=== PATIENT | female | born 1980 | race Caucasian/White ===

== ENCOUNTER 2016-05-03 23:30 | Inpatient (IN) | payer SELFPAY ==
[2016-05-04] MEDS ORDERED: Sodium Chloride 0.9% 1,000 ML IV SCH ×2 (00:45→09:00)
[2016-05-04] MEDS ORDERED: diphenhydrAMINE 50 MG/ML SDV IVPUSH ONE (00:52)
[2016-05-04] MEDS ORDERED: Sodium Chloride 0.9% 10 ML Syringe FLUSH ONE (01:56)
[2016-05-04] MEDS ORDERED: Sodium Chloride 0.9% 71 ML IV SCH (02:00)
[2016-05-04] MEDS ORDERED: Iopamidol 612 MG/ML 100 ML Bottle IV SCH (02:00)
[2016-05-04] MEDS ORDERED: LORazepam 2 MG/ML MDV IVPUSH ONE (02:59)
--- NOTE | 2016-05-04 06:39 | EDM.PDOC ---
ED HPI GI/ABDOMINAL - General Chief Complaint: Abdominal Pain Stated Complaint: [facility] Time Seen by Provider: 05/04/16 00:28 Source: Reports: Patient History Limitations: Reports: No limitations - History of Present Illness INITIAL COMMENTS - FREE TEXT/NARRATIVE: History of present illness: [35-year-old free male is brought to us from [place] where she has been since April 25. She is complaining of right flank pain. She states she has only history of liver cancer and cirrhosis in [place] we were able to confirm that she does have history of cirrhosis and hepatitis C and schizophrenia but no history of liver cancer that we're aware of. She presents rather dramatically complaining of right flank pain sharp 10 out of 10 in intensity without nausea vomiting constipation diarrhea or dysuria. She's had no fevers or chills.] Review of systems: As per history of present illness and below otherwise all systems reviewed and negative. Past medical history: As per history of present illness and as reviewed below otherwise noncontributory. Surgical history: As per history of present illness and as reviewed below otherwise noncontributory. Social history: She is coming from [place] and I [facility] Family history: As per history of present illness and as reviewed below otherwise noncontributory. Physical exam: HEENT: Atraumatic, normocephalic, pupils reactive, negative for conjunctival pallor or scleral icterus, mucous membranes moist, throat clear, neck supple, nontender, trachea midline. Lungs: Clear to auscultation, breath sounds equal bilaterally, chest nontender. Heart: S1S2, regular, negative for clicks, rubs, or JVD. Abdomen: She is difficult to examine given her dramatic presentation but it seems she has pain that is localized to the right flank and not the right upper quadrant. Pelvis: Stable nontender. Genitourinary: Deferred. Rectal: Deferred. Extremities: Atraumatic, negative for cords or calf pain. Neurovascular unremarkable. Neuro: Awake, alert, oriented. Cranial nerves II through XII unremarkable. Cerebellum unremarkable. Motor and sensory unremarkable throughout. Exam nonfocal. Diagnostics: [CT showing nonspecific splenomegaly and cholelithiasis but no cholecystitis. Her white count is normal her complete metabolic panel does show some elevation of her alkaline phosphatase and liver enzymes as she does have elevation of her lipase although this would of course be consistent with cirrhosis. Lactic acid level was normal] Therapeutics: [She received IV fluids and IV Benadryl to try to help her sleep and then we did subsequently use Ativan 0.5 mg IV and she has slept several hours and appears comfortable and so this is diagnostically useful in that we've not given her any pain medication and yet she is sleeping and appears comfortable] Impression: [Cholelithiasis Nonspecific splenomegaly] Plan: [I see no reason to admit her to the hospital. We're going to try to make arrangements for her to return to [place]. It may be reasonable for her to undergo a gallbladder ultrasound. This will be relayed to the [place] staff and perhaps Dr. Rivas can arrange that.] Definitive disposition and diagnosis as appropriate pending reevaluation and review of above. - Related Data Allergies/ADRs: Allergies Allergy/AdvReac Type Severity Reaction Status Date / Time Digitalis Glycosides Allergy Cannot Verified 05/04/16 00:26 Remember Home Meds: Home Meds Gabapentin [Neurontin] 600 mg PO DAILY 05/04/16 [History] Pregabalin [Lyrica] 300 mg PO DAILY 05/04/16 [History] Past Medical History Cardiovascular History: Reports: Heart murmur Gastrointestinal History: Reports: Cirrhosis Musculoskeletal History: Reports: Fracture Psychiatric History: Reports: Depression, Schizophrenia Hematologic History: Reports: Blood transfusion(s) Immunologic History: Reports: SLE - Infectious Disease History Infectious Disease History: Reports: Hepatitis C - Past Surgical History Cardiovascular Surgical History: Reports: Other (see below) Other Cardiovascular Surgeries/Procedures: open heart when a child Musculoskeletal Surgical History: Reports: ORIF Social & Family History - Family History Family Medical History: Noncontributory - Tobacco Use Smoking Status *Q: Current Every Day Smoker Years of Tobacco use: 18 Packs/Tins Daily: 1 - Caffeine Use Caffeine Use: Reports: Coffee - Recreational Drug Use Recreational Drug Use: No ED ROS GENERAL - Review of Systems Review Of Systems: ROS reveals no pertinent complaints other than HPI. ED EXAM, GI/ABD - Physical Exam Exam: See Below Course - Vital Signs Last Recorded V/S: Last Vital Signs Temp 37 C 05/04/16 02:43 Pulse 105 H 05/04/16 03:14 Resp 14 05/04/16 03:14 BP 124/65 05/04/16 03:14 Pulse Ox 94 L 05/04/16 03:14 - Orders/Labs/Meds Orders: Active Orders 24 hr Category Date Time Status EKG Documentation Completion [RC] ASDIRECTED Care 05/04/16 00:34 Active Abdomen Pelvis w Cont [CT] Stat Exams 05/04/16 01:51 Taken Iopamidol [Isovue-300 (61%)] Med 05/04/16 02:00 Active 100 ml IV . DIRECTED Sodium Chloride 0.9% [Normal Saline] 1,000 ml Med 05/04/16 00:45 Active IV ASDIRECTED Sodium Chloride 0.9% [Normal Saline] 71 ml Med 05/04/16 02:00 Active IV ASDIRECTED EKG 12 Lead [EK] Stat Ther 05/04/16 00:33 Ordered Medication Orders Sodium Chloride (Normal Saline) 1,000 mls @ 500 mls/hr IV ASDIRECTED LAURA Last Admin: 05/04/16 01:03 Dose: 500 mls/hr Sodium Chloride (Normal Saline) 71 mls @ 3 mls/sec IV ASDIRECTED [facility] Last Admin: 05/04/16 02:21 Dose: 3 mls/sec Iopamidol (Isovue-300 (61%)) 100 ml IV . DIRECTED [facility] Last Admin: 05/04/16 02:21 Dose: 100 ml Labs: Laboratory Tests 05/04/16 05/04/16 05/04/16 Range/Units 00:32 00:32 00:33 WBC 5.6 (4.5-11.0) K/uL RBC 3.79 (3.30-5.50) M/uL Hgb 12.0 (12.0-15.0) g/dL Hct 36.4 (36.0-48.0) % MCV 96 (80-98) fL MCH 32 H (27-31) pg MCHC 33 (32-36) % Plt Count 94 L (150-400) K/uL Neut % (Auto) 63 (36-66) % Lymph % (Auto) 18 L (24-44) % [place] % (Auto) 14 H (2-6) % Eos % (Auto) 5 H (2-4) % Baso % (Auto) 1 (0-1) % PT 10.4 (9.5-12.0) sec INR 0.98 (0.80-1.20) ABG Hemoglobin (12.0-16.0) g/dL ABG Oxyhemoglobin % ABG Carboxyhemoglobin (0.0-1.6) % ABG Methemoglobin % VBG pH (7.350-7.450) VBG pCO2 mm/Hg VBG pO2 mm/Hg VBG HCO3 mmol/L VBG Total CO2 mmol/L VBG O2 Saturation VBG O2 Content %vol VBG Base Excess mm/L O2 Delivery Device Sodium 139 L (140-148) mmol/L Potassium 3.7 (3.6-5.2) mmol/L Chloride 107 (100-108) mmol/L Carbon Dioxide 23 (21-32) mmol/L Anion Gap 12.7 (5.0-14.0) mmol/L BUN 27 H (7-18) mg/dL Creatinine 0.7 (0.6-1.0) mg/dL Est Cr Clr Drug Dosing 95.94 mL/min Estimated GFR (MDRD) > 60 (>60) Glucose 128 H (74-106) mg/dL Lactic Acid (0.4-2.0) mmol/L Calcium 8.4 L (8.5-10.1) mg/dL Total Bilirubin 0.5 (0.2-1.0) mg/dL AST 44 H (15-37) U/L ALT 42 (12-78) U/L Alkaline Phosphatase 164 H (46-116) U/L Ammonia (11-32) mmol/L C-Reactive Protein (0.0-0.3) mg/dL Total Protein 7.9 (6.4-8.2) g/dL Albumin 3.4 (3.4-5.0) g/dL Globulin 4.5 H (2.3-3.5) g/dL Albumin/Globulin Ratio 0.8 L (1.2-2.2) Amylase (25-115) U/L Lipase (73-393) U/L Urine Color Urine Appearance Urine pH (4.5-8.0) Ur Specific [place] (1.008-1.030) Urine Protein (NEGATIVE) mg/dL Urine Glucose (UA) (NEGATIVE) mg/dL Urine Ketones (NEGATIVE) mg/dL Urine Occult Blood (NEGATIVE) Urine Nitrite (NEGATIVE) Urine Bilirubin (NEGATIVE) Urine Urobilinogen (NORMAL) mg/dL Ur Leukocyte Esterase (NEGATIVE) Urine RBC (0-5) Urine WBC (0-5) Ur Epithelial Cells Amorphous Sediment Urine Bacteria Urine Mucus Urine HCG, Qual Urine Opiates Screen (NEGATIVE) Ur Oxycodone Screen (NEGATIVE) Urine Methadone Screen (NEGATIVE) Ur Propoxyphene Screen (NEGATIVE) Ur Barbiturates Screen (NEGATIVE) Ur Tricyclics Screen (NEGATIVE) Ur Phencyclidine Scrn (NEGATIVE) Ur Amphetamine Screen (NEGATIVE) U Methamphetamines Scrn (NEGATIVE) Urine MDMA Screen (NEGATIVE) U Benzodiazepines Scrn (NEGATIVE) U Cocaine Metab Screen (NEGATIVE) U Marijuana (THC) Screen (NEGATIVE) 05/04/16 05/04/16 05/04/16 Range/Units 00:33 00:33 00:33 WBC (4.5-11.0) K/uL RBC (3.30-5.50) M/uL Hgb (12.0-15.0) g/dL Hct (36.0-48.0) % MCV (80-98) fL MCH (27-31) pg MCHC (32-36) % Plt Count (150-400) K/uL Neut % (Auto) (36-66) % Lymph % (Auto) (24-44) % [place] % (Auto) (2-6) % Eos % (Auto) (2-4) % Baso % (Auto) (0-1) % PT (9.5-12.0) sec INR (0.80-1.20) ABG Hemoglobin 11.9 L (12.0-16.0) g/dL ABG Oxyhemoglobin 92.4 % ABG Carboxyhemoglobin 2.4 H (0.0-1.6) % ABG Methemoglobin 0.5 % VBG pH 7.420 (7.350-7.450) VBG pCO2 33.3 mm/Hg VBG pO2 73.7 mm/Hg VBG HCO3 21.2 mmol/L VBG Total CO2 19.2 mmol/L VBG O2 Saturation 95.2 VBG O2 Content 15.5 %vol VBG Base Excess -2.1 mm/L O2 Delivery Device Room air Sodium (140-148) mmol/L Potassium (3.6-5.2) mmol/L Chloride (100-108) mmol/L Carbon Dioxide (21-32) mmol/L Anion Gap (5.0-14.0) mmol/L BUN (7-18) mg/dL Creatinine (0.6-1.0) mg/dL Est Cr Clr Drug Dosing mL/min Estimated GFR (MDRD) (>60) Glucose (74-106) mg/dL Lactic Acid (0.4-2.0) mmol/L Calcium (8.5-10.1) mg/dL Total Bilirubin (0.2-1.0) mg/dL AST (15-37) U/L ALT (12-78) U/L Alkaline Phosphatase (46-116) U/L Ammonia 37 H (11-32) mmol/L C-Reactive Protein 0.17 (0.0-0.3) mg/dL Total Protein (6.4-8.2) g/dL Albumin (3.4-5.0) g/dL Globulin (2.3-3.5) g/dL Albumin/Globulin Ratio (1.2-2.2) Amylase 82 (25-115) U/L Lipase 436 H (73-393) U/L Urine Color Urine Appearance Urine pH (4.5-8.0) Ur Specific [place] (1.008-1.030) Urine Protein (NEGATIVE) mg/dL Urine Glucose (UA) (NEGATIVE) mg/dL Urine Ketones (NEGATIVE) mg/dL Urine Occult Blood (NEGATIVE) Urine Nitrite (NEGATIVE) Urine Bilirubin (NEGATIVE) Urine Urobilinogen (NORMAL) mg/dL Ur Leukocyte Esterase (NEGATIVE) Urine RBC (0-5) Urine WBC (0-5) Ur Epithelial Cells Amorphous Sediment Urine Bacteria Urine Mucus Urine HCG, Qual Urine Opiates Screen (NEGATIVE) Ur Oxycodone Screen (NEGATIVE) Urine Methadone Screen (NEGATIVE) Ur Propoxyphene Screen (NEGATIVE) Ur Barbiturates Screen (NEGATIVE) Ur Tricyclics Screen (NEGATIVE) Ur Phencyclidine Scrn (NEGATIVE) Ur Amphetamine Screen (NEGATIVE) U Methamphetamines Scrn (NEGATIVE) Urine MDMA Screen (NEGATIVE) U Benzodiazepines Scrn (NEGATIVE) U Cocaine Metab Screen (NEGATIVE) U Marijuana (THC) Screen (NEGATIVE) 05/04/16 05/04/16 05/04/16 Range/Units 00:33 01:12 01:12 WBC (4.5-11.0) K/uL RBC (3.30-5.50) M/uL Hgb (12.0-15.0) g/dL Hct (36.0-48.0) % MCV (80-98) fL MCH (27-31) pg MCHC (32-36) % Plt Count (150-400) K/uL Neut % (Auto) (36-66) % Lymph % (Auto) (24-44) % [place] % (Auto) (2-6) % Eos % (Auto) (2-4) % Baso % (Auto) (0-1) % PT (9.5-12.0) sec INR (0.80-1.20) ABG Hemoglobin (12.0-16.0) g/dL ABG Oxyhemoglobin % ABG Carboxyhemoglobin (0.0-1.6) % ABG Methemoglobin % VBG pH (7.350-7.450) VBG pCO2 mm/Hg VBG pO2 mm/Hg VBG HCO3 mmol/L VBG Total CO2 mmol/L VBG O2 Saturation VBG O2 Content %vol VBG Base Excess mm/L O2 Delivery Device Sodium (140-148) mmol/L Potassium (3.6-5.2) mmol/L Chloride (100-108) mmol/L Carbon Dioxide (21-32) mmol/L Anion Gap (5.0-14.0) mmol/L BUN (7-18) mg/dL Creatinine (0.6-1.0) mg/dL Est Cr Clr Drug Dosing mL/min Estimated GFR (MDRD) (>60) Glucose (74-106) mg/dL Lactic Acid 1.2 (0.4-2.0) mmol/L Calcium (8.5-10.1) mg/dL Total Bilirubin (0.2-1.0) mg/dL AST (15-37) U/L ALT (12-78) U/L Alkaline Phosphatase (46-116) U/L Ammonia (11-32) mmol/L C-Reactive Protein (0.0-0.3) mg/dL Total Protein (6.4-8.2) g/dL Albumin (3.4-5.0) g/dL Globulin (2.3-3.5) g/dL Albumin/Globulin Ratio (1.2-2.2) Amylase (25-115) U/L Lipase (73-393) U/L Urine Color Yellow Urine Appearance Cloudy Urine pH 7.0 (4.5-8.0) Ur Specific [place] 1.010 (1.008-1.030) Urine Protein Negative (NEGATIVE) mg/dL Urine Glucose (UA) Normal (NEGATIVE) mg/dL Urine Ketones Negative (NEGATIVE) mg/dL Urine Occult Blood Negative (NEGATIVE) Urine Nitrite Negative (NEGATIVE) Urine Bilirubin Negative (NEGATIVE) Urine Urobilinogen Normal (NORMAL) mg/dL Ur Leukocyte Esterase Negative (NEGATIVE) Urine RBC 0-5 (0-5) Urine WBC 0-5 (0-5) Ur Epithelial Cells Few Amorphous Sediment Numerous Urine Bacteria Rare Urine Mucus Few Urine HCG, Qual Negative Urine Opiates Screen (NEGATIVE) Ur Oxycodone Screen (NEGATIVE) Urine Methadone Screen (NEGATIVE) Ur Propoxyphene Screen (NEGATIVE) Ur Barbiturates Screen (NEGATIVE) Ur Tricyclics Screen (NEGATIVE) Ur Phencyclidine Scrn (NEGATIVE) Ur Amphetamine Screen (NEGATIVE) U Methamphetamines Scrn (NEGATIVE) Urine MDMA Screen (NEGATIVE) U Benzodiazepines Scrn (NEGATIVE) U Cocaine Metab Screen (NEGATIVE) U Marijuana (THC) Screen (NEGATIVE) 05/04/16 Range/Units 01:12 WBC (4.5-11.0) K/uL RBC (3.30-5.50) M/uL Hgb (12.0-15.0) g/dL Hct (36.0-48.0) % MCV (80-98) fL MCH (27-31) pg MCHC (32-36) % Plt Count (150-400) K/uL Neut % (Auto) (36-66) % Lymph % (Auto) (24-44) % [place] % (Auto) (2-6) % Eos % (Auto) (2-4) % Baso % (Auto) (0-1) % PT (9.5-12.0) sec INR (0.80-1.20) ABG Hemoglobin (12.0-16.0) g/dL ABG Oxyhemoglobin % ABG Carboxyhemoglobin (0.0-1.6) % ABG Methemoglobin % VBG pH (7.350-7.450) VBG pCO2 mm/Hg VBG pO2 mm/Hg VBG HCO3 mmol/L VBG Total CO2 mmol/L VBG O2 Saturation VBG O2 Content %vol VBG Base Excess mm/L O2 Delivery Device Sodium (140-148) mmol/L Potassium (3.6-5.2) mmol/L Chloride (100-108) mmol/L Carbon Dioxide (21-32) mmol/L Anion Gap (5.0-14.0) mmol/L BUN (7-18) mg/dL Creatinine (0.6-1.0) mg/dL Est Cr Clr Drug Dosing mL/min Estimated GFR (MDRD) (>60) Glucose (74-106) mg/dL Lactic Acid (0.4-2.0) mmol/L Calcium (8.5-10.1) mg/dL Total Bilirubin (0.2-1.0) mg/dL AST (15-37) U/L ALT (12-78) U/L Alkaline Phosphatase (46-116) U/L Ammonia (11-32) mmol/L C-Reactive Protein (0.0-0.3) mg/dL Total Protein (6.4-8.2) g/dL Albumin (3.4-5.0) g/dL Globulin (2.3-3.5) g/dL Albumin/Globulin Ratio (1.2-2.2) Amylase (25-115) U/L Lipase (73-393) U/L Urine Color Urine Appearance Urine pH (4.5-8.0) Ur Specific [place] (1.008-1.030) Urine Protein (NEGATIVE) mg/dL Urine Glucose (UA) (NEGATIVE) mg/dL Urine Ketones (NEGATIVE) mg/dL Urine Occult Blood (NEGATIVE) Urine Nitrite (NEGATIVE) Urine Bilirubin (NEGATIVE) Urine Urobilinogen (NORMAL) mg/dL Ur Leukocyte Esterase (NEGATIVE) Urine RBC (0-5) Urine WBC (0-5) Ur Epithelial Cells Amorphous Sediment Urine Bacteria Urine Mucus Urine HCG, Qual Urine Opiates Screen Negative (NEGATIVE) Ur Oxycodone Screen Negative (NEGATIVE) Urine Methadone Screen Negative (NEGATIVE) Ur Propoxyphene Screen Negative (NEGATIVE) Ur Barbiturates Screen Negative (NEGATIVE) Ur Tricyclics Screen Negative (NEGATIVE) Ur Phencyclidine Scrn Negative (NEGATIVE) Ur Amphetamine Screen Negative (NEGATIVE) U Methamphetamines Scrn Negative (NEGATIVE) Urine MDMA Screen Negative (NEGATIVE) U Benzodiazepines Scrn Negative (NEGATIVE) U Cocaine Metab Screen Negative (NEGATIVE) U Marijuana (THC) Screen Negative (NEGATIVE) Meds: Medications Generic Name Dose Route Start Last Admin Trade Name Freq PRN Reason Stop Dose Admin Sodium Chloride 1,000 mls @ 500 mls/hr 05/04/16 00:45 05/04/16 01:03 Normal Saline IV 500 mls/hr ASDIRECTED LAURA Administration Sodium Chloride 71 mls @ 3 mls/sec 05/04/16 02:00 05/04/16 02:21 Normal Saline IV 3 mls/sec ASDIRECTED LAURA Administration Iopamidol 100 ml 05/04/16 02:00 05/04/16 02:21 Isovue-300 (61%) IV 100 ml . DIRECTED LAURA Administration Discontinued Medications Generic Name Dose Route Start Last Admin Trade Name Freq PRN Reason Stop Dose Admin Diphenhydramine HCl 25 mg 05/04/16 00:52 05/04/16 01:03 Benadryl IVPUSH 05/04/16 00:53 25 mg ONETIME ONE Administration Lorazepam 0.5 mg 05/04/16 02:59 05/04/16 03:10 Ativan IVPUSH 05/04/16 03:00 0.5 mg ONETIME ONE Administration Sodium Chloride 10 ml 05/04/16 01:56 05/04/16 02:21 Saline Flush FLUSH 05/04/16 01:57 10 ml ONETIME ONE Administration Departure - Departure Time of Disposition: 06:38 Disposition: DC/Tfer to Other 70 Condition: good Clinical Impression: Splenomegaly Cholelithiasis Qualifiers: Cholelithiasis location: gallbladder Cholecystitis acuity: unspecified acuity Biliary obstruction: without biliary obstruction Forms: ED Department Discharge Additional Instructions: You may have gallbladder disease that may be causing your pain. Dr. Rivas who is the medical assembler for primary or perhaps arrange for you to undergo a gallbladder ultrasound. - My Orders Last 24 Hours: My Active Orders 05/04/16 00:33 EKG 12 Lead [EK] Stat 05/04/16 00:34 EKG Documentation Completion [RC] ASDIRECTED 05/04/16 00:45 Sodium Chloride 0.9% [Normal Saline] 1,000 ml IV ASDIRECTED 05/04/16 01:51 Abdomen Pelvis w Cont [CT] Stat 05/04/16 02:00 Iopamidol [Isovue-300 (61%)] 100 ml IV . DIRECTED Sodium Chloride 0.9% [Normal Saline] 71 ml IV ASDIRECTED - Assessment/Plan Last 24 Hours: My Active Orders 05/04/16 00:33 EKG 12 Lead [EK] Stat 05/04/16 00:34 EKG Documentation Completion [RC] ASDIRECTED 05/04/16 00:45 Sodium Chloride 0.9% [Normal Saline] 1,000 ml IV ASDIRECTED 05/04/16 01:51 Abdomen Pelvis w Cont [CT] Stat 05/04/16 02:00 Iopamidol [Isovue-300 (61%)] 100 ml IV . DIRECTED Sodium Chloride 0.9% [Normal Saline] 71 ml IV ASDIRECTED
--- NOTE | 2016-05-04 08:54 | US ---
Right upper quadrant ultrasound The liver demonstrates a coarse echotexture. No focal hepatic lesions are demonstrated. The gallblad ying is contracted. There is a stone in the fundal region of the gallbladder. There is no pain elicit ed with palpation over the gallbladder. The common bile duct measures 4 mm. The visualized portions of the pancreas are unremarkable. Impression: 1. Cholelithiasis. No evidence for acute inflammation. 2. Cirrhotic changes of the liver.
[2016-05-04] MEDS ORDERED: Nicotine 21 MG/24 Hr Patch TRDERM SCH (09:00)
--- NOTE | 2016-05-04 09:04 | PCM.HP ---
H&P History of Present Illness - General Date of Service: 05/04/16 Admit Problem/Dx: Admission Diagnosis/Problem Admission Diagnosis/Problem Abdominal pain Source of Information: Patient History Limitations: Reports: No limitations - History of Present Illness Initial Comments - Free Text/Narative: She started having abdominal pain yesterday morning with cramping pain worse with a deep breath with stabbing type pain. 10/10 in severity. Hasn't eaten for 15 hrs. She is hungry presently. She has 4 BM/day for more often. Has a history of cirrhosis of the liver. Taking no medicine on a regular basis presently. Whenever she the pain is much worse. Right Upper Abdomen Pain Score (Numeric/FACES): 7 - Related Data Allergies/Adverse Reactions: Allergies Allergy/AdvReac Type Severity Reaction Status Date / Time Digitalis Glycosides Allergy Cannot Verified 05/04/16 00:26 Remember Home Medications: Home Meds Gabapentin [Neurontin] 600 mg PO DAILY 05/04/16 [History] Pregabalin [Lyrica] 300 mg PO DAILY 05/04/16 [History] Past Medical History Cardiovascular History: Reports: Heart murmur Gastrointestinal History: Reports: Cirrhosis Musculoskeletal History: Reports: Fracture Psychiatric History: Reports: Depression, Schizophrenia Hematologic History: Reports: Blood transfusion(s) Immunologic History: Reports: SLE - Infectious Disease History Infectious Disease History: Reports: Hepatitis C - Past Surgical History Cardiovascular Surgical History: Reports: Other (see below) Other Cardiovascular Surgeries/Procedures: open heart when a child Musculoskeletal Surgical History: Reports: ORIF Social & Family History - Family History Family Medical History: Noncontributory - Tobacco Use Smoking Status *Q: Current Every Day Smoker Years of Tobacco use: 18 Packs/Tins Daily: 1 - Caffeine Use Caffeine Use: Reports: Coffee - Recreational Drug Use Recreational Drug Use: No H&P Review of Systems - Review of Systems: Review Of Systems: See Below General: Reports: no symptoms HEENT: Reports: no symptoms Pulmonary: Reports: no symptoms Cardiovascular: Reports: no symptoms Gastrointestinal: Reports: Abdominal pain Genitourinary: Reports: no symptoms Musculoskeletal: Reports: no symptoms Skin: Reports: no symptoms Psychiatric: Reports: no symptoms Neurological: Reports: no symptoms Hematologic/Lymphatic: Reports: no symptoms Immunologic: Reports: no symptoms Exam - Exam Exam: See Below - Vital Signs Vital Signs: Last Vital Signs Temp 98.6 F 05/04/16 02:43 Pulse 102 H 05/04/16 06:35 Resp 14 05/04/16 06:35 BP 127/67 05/04/16 06:35 Pulse Ox 92 L 05/04/16 06:35 Weight: 150 lb - Exam General: alert, oriented, 4 HEENT: PERRLA, Hearing intact, Mucosa moist & pink, Nares patent, Normal nasal septum, Posterior pharynx clear, Conjunctiva clear, EOMI, EACs clear, TMs clear Neck: supple, trachea midline, 2 Lungs: Clear to auscultation, Normal respiratory effort Cardiovascular: regular rate, regular rhythm Abdomen: normal bowel sounds, soft, guarding, tenderness Back Exam: CVA tenderness (R) Extremities: normal inspection Skin: warm, dry, intact Neurological: cranial nerves intact, reflexes equal bilateral, strength equal bilateral DTR: 1+: patella (L), patella (R) Psychiatric: alert, normal affect, anxious - Patient Data Lab Results last 24 hrs: Laboratory Results - last 24 hr 05/04/16 05/04/16 05/04/16 Range/Units 00:32 00:32 00:33 WBC 5.6 (4.5-11.0) K/uL RBC 3.79 (3.30-5.50) M/uL Hgb 12.0 (12.0-15.0) g/dL Hct 36.4 (36.0-48.0) % MCV 96 (80-98) fL MCH 32 H (27-31) pg MCHC 33 (32-36) % Plt Count 94 L (150-400) K/uL Neut % (Auto) 63 (36-66) % Lymph % (Auto) 18 L (24-44) % [place] % (Auto) 14 H (2-6) % Eos % (Auto) 5 H (2-4) % Baso % (Auto) 1 (0-1) % PT 10.4 (9.5-12.0) sec INR 0.98 (0.80-1.20) ABG Hemoglobin (12.0-16.0) g/dL ABG Oxyhemoglobin % ABG Carboxyhemoglobin (0.0-1.6) % ABG Methemoglobin % VBG pH (7.350-7.450) VBG pCO2 mm/Hg VBG pO2 mm/Hg VBG HCO3 mmol/L VBG Total CO2 mmol/L VBG O2 Saturation VBG O2 Content %vol VBG Base Excess mm/L O2 Delivery Device Sodium 139 L (140-148) mmol/L Potassium 3.7 (3.6-5.2) mmol/L Chloride 107 (100-108) mmol/L Carbon Dioxide 23 (21-32) mmol/L Anion Gap 12.7 (5.0-14.0) mmol/L BUN 27 H (7-18) mg/dL Creatinine 0.7 (0.6-1.0) mg/dL Est Cr Clr Drug Dosing 95.94 mL/min Estimated GFR (MDRD) > 60 (>60) Glucose 128 H (74-106) mg/dL Lactic Acid (0.4-2.0) mmol/L Calcium 8.4 L (8.5-10.1) mg/dL Total Bilirubin 0.5 (0.2-1.0) mg/dL AST 44 H (15-37) U/L ALT 42 (12-78) U/L Alkaline Phosphatase 164 H (46-116) U/L Ammonia (11-32) mmol/L C-Reactive Protein (0.0-0.3) mg/dL Total Protein 7.9 (6.4-8.2) g/dL Albumin 3.4 (3.4-5.0) g/dL Globulin 4.5 H (2.3-3.5) g/dL Albumin/Globulin Ratio 0.8 L (1.2-2.2) Amylase (25-115) U/L Lipase (73-393) U/L Urine Color Urine Appearance Urine pH (4.5-8.0) Ur Specific [place] (1.008-1.030) Urine Protein (NEGATIVE) mg/dL Urine Glucose (UA) (NEGATIVE) mg/dL Urine Ketones (NEGATIVE) mg/dL Urine Occult Blood (NEGATIVE) Urine Nitrite (NEGATIVE) Urine Bilirubin (NEGATIVE) Urine Urobilinogen (NORMAL) mg/dL Ur Leukocyte Esterase (NEGATIVE) Urine RBC (0-5) Urine WBC (0-5) Ur Epithelial Cells Amorphous Sediment Urine Bacteria Urine Mucus Urine HCG, Qual Urine Opiates Screen (NEGATIVE) Ur Oxycodone Screen (NEGATIVE) Urine Methadone Screen (NEGATIVE) Ur Propoxyphene Screen (NEGATIVE) Ur Barbiturates Screen (NEGATIVE) Ur Tricyclics Screen (NEGATIVE) Ur Phencyclidine Scrn (NEGATIVE) Ur Amphetamine Screen (NEGATIVE) U Methamphetamines Scrn (NEGATIVE) Urine MDMA Screen (NEGATIVE) U Benzodiazepines Scrn (NEGATIVE) U Cocaine Metab Screen (NEGATIVE) U Marijuana (THC) Screen (NEGATIVE) 05/04/16 05/04/16 05/04/16 Range/Units 00:33 00:33 00:33 WBC (4.5-11.0) K/uL RBC (3.30-5.50) M/uL Hgb (12.0-15.0) g/dL Hct (36.0-48.0) % MCV (80-98) fL MCH (27-31) pg MCHC (32-36) % Plt Count (150-400) K/uL Neut % (Auto) (36-66) % Lymph % (Auto) (24-44) % [place] % (Auto) (2-6) % Eos % (Auto) (2-4) % Baso % (Auto) (0-1) % PT (9.5-12.0) sec INR (0.80-1.20) ABG Hemoglobin 11.9 L (12.0-16.0) g/dL ABG Oxyhemoglobin 92.4 % ABG Carboxyhemoglobin 2.4 H (0.0-1.6) % ABG Methemoglobin 0.5 % VBG pH 7.420 (7.350-7.450) VBG pCO2 33.3 mm/Hg VBG pO2 73.7 mm/Hg VBG HCO3 21.2 mmol/L VBG Total CO2 19.2 mmol/L VBG O2 Saturation 95.2 VBG O2 Content 15.5 %vol VBG Base Excess -2.1 mm/L O2 Delivery Device Room air Sodium (140-148) mmol/L Potassium (3.6-5.2) mmol/L Chloride (100-108) mmol/L Carbon Dioxide (21-32) mmol/L Anion Gap (5.0-14.0) mmol/L BUN (7-18) mg/dL Creatinine (0.6-1.0) mg/dL Est Cr Clr Drug Dosing mL/min Estimated GFR (MDRD) (>60) Glucose (74-106) mg/dL Lactic Acid (0.4-2.0) mmol/L Calcium (8.5-10.1) mg/dL Total Bilirubin (0.2-1.0) mg/dL AST (15-37) U/L ALT (12-78) U/L Alkaline Phosphatase (46-116) U/L Ammonia 37 H (11-32) mmol/L C-Reactive Protein 0.17 (0.0-0.3) mg/dL Total Protein (6.4-8.2) g/dL Albumin (3.4-5.0) g/dL Globulin (2.3-3.5) g/dL Albumin/Globulin Ratio (1.2-2.2) Amylase 82 (25-115) U/L Lipase 436 H (73-393) U/L Urine Color Urine Appearance Urine pH (4.5-8.0) Ur Specific [place] (1.008-1.030) Urine Protein (NEGATIVE) mg/dL Urine Glucose (UA) (NEGATIVE) mg/dL Urine Ketones (NEGATIVE) mg/dL Urine Occult Blood (NEGATIVE) Urine Nitrite (NEGATIVE) Urine Bilirubin (NEGATIVE) Urine Urobilinogen (NORMAL) mg/dL Ur Leukocyte Esterase (NEGATIVE) Urine RBC (0-5) Urine WBC (0-5) Ur Epithelial Cells Amorphous Sediment Urine Bacteria Urine Mucus Urine HCG, Qual Urine Opiates Screen (NEGATIVE) Ur Oxycodone Screen (NEGATIVE) Urine Methadone Screen (NEGATIVE) Ur Propoxyphene Screen (NEGATIVE) Ur Barbiturates Screen (NEGATIVE) Ur Tricyclics Screen (NEGATIVE) Ur Phencyclidine Scrn (NEGATIVE) Ur Amphetamine Screen (NEGATIVE) U Methamphetamines Scrn (NEGATIVE) Urine MDMA Screen (NEGATIVE) U Benzodiazepines Scrn (NEGATIVE) U Cocaine Metab Screen (NEGATIVE) U Marijuana (THC) Screen (NEGATIVE) 05/04/16 05/04/16 05/04/16 Range/Units 00:33 01:12 01:12 WBC (4.5-11.0) K/uL RBC (3.30-5.50) M/uL Hgb (12.0-15.0) g/dL Hct (36.0-48.0) % MCV (80-98) fL MCH (27-31) pg MCHC (32-36) % Plt Count (150-400) K/uL Neut % (Auto) (36-66) % Lymph % (Auto) (24-44) % [place] % (Auto) (2-6) % Eos % (Auto) (2-4) % Baso % (Auto) (0-1) % PT (9.5-12.0) sec INR (0.80-1.20) ABG Hemoglobin (12.0-16.0) g/dL ABG Oxyhemoglobin % ABG Carboxyhemoglobin (0.0-1.6) % ABG Methemoglobin % VBG pH (7.350-7.450) VBG pCO2 mm/Hg VBG pO2 mm/Hg VBG HCO3 mmol/L VBG Total CO2 mmol/L VBG O2 Saturation VBG O2 Content %vol VBG Base Excess mm/L O2 Delivery Device Sodium (140-148) mmol/L Potassium (3.6-5.2) mmol/L Chloride (100-108) mmol/L Carbon Dioxide (21-32) mmol/L Anion Gap (5.0-14.0) mmol/L BUN (7-18) mg/dL Creatinine (0.6-1.0) mg/dL Est Cr Clr Drug Dosing mL/min Estimated GFR (MDRD) (>60) Glucose (74-106) mg/dL Lactic Acid 1.2 (0.4-2.0) mmol/L Calcium (8.5-10.1) mg/dL Total Bilirubin (0.2-1.0) mg/dL AST (15-37) U/L ALT (12-78) U/L Alkaline Phosphatase (46-116) U/L Ammonia (11-32) mmol/L C-Reactive Protein (0.0-0.3) mg/dL Total Protein (6.4-8.2) g/dL Albumin (3.4-5.0) g/dL Globulin (2.3-3.5) g/dL Albumin/Globulin Ratio (1.2-2.2) Amylase (25-115) U/L Lipase (73-393) U/L Urine Color Yellow Urine Appearance Cloudy Urine pH 7.0 (4.5-8.0) Ur Specific [place] 1.010 (1.008-1.030) Urine Protein Negative (NEGATIVE) mg/dL Urine Glucose (UA) Normal (NEGATIVE) mg/dL Urine Ketones Negative (NEGATIVE) mg/dL Urine Occult Blood Negative (NEGATIVE) Urine Nitrite Negative (NEGATIVE) Urine Bilirubin Negative (NEGATIVE) Urine Urobilinogen Normal (NORMAL) mg/dL Ur Leukocyte Esterase Negative (NEGATIVE) Urine RBC 0-5 (0-5) Urine WBC 0-5 (0-5) Ur Epithelial Cells Few Amorphous Sediment Numerous Urine Bacteria Rare Urine Mucus Few Urine HCG, Qual Negative Urine Opiates Screen (NEGATIVE) Ur Oxycodone Screen (NEGATIVE) Urine Methadone Screen (NEGATIVE) Ur Propoxyphene Screen (NEGATIVE) Ur Barbiturates Screen (NEGATIVE) Ur Tricyclics Screen (NEGATIVE) Ur Phencyclidine Scrn (NEGATIVE) Ur Amphetamine Screen (NEGATIVE) U Methamphetamines Scrn (NEGATIVE) Urine MDMA Screen (NEGATIVE) U Benzodiazepines Scrn (NEGATIVE) U Cocaine Metab Screen (NEGATIVE) U Marijuana (THC) Screen (NEGATIVE) 05/04/16 Range/Units 01:12 WBC (4.5-11.0) K/uL RBC (3.30-5.50) M/uL Hgb (12.0-15.0) g/dL Hct (36.0-48.0) % MCV (80-98) fL MCH (27-31) pg MCHC (32-36) % Plt Count (150-400) K/uL Neut % (Auto) (36-66) % Lymph % (Auto) (24-44) % [place] % (Auto) (2-6) % Eos % (Auto) (2-4) % Baso % (Auto) (0-1) % PT (9.5-12.0) sec INR (0.80-1.20) ABG Hemoglobin (12.0-16.0) g/dL ABG Oxyhemoglobin % ABG Carboxyhemoglobin (0.0-1.6) % ABG Methemoglobin % VBG pH (7.350-7.450) VBG pCO2 mm/Hg VBG pO2 mm/Hg VBG HCO3 mmol/L VBG Total CO2 mmol/L VBG O2 Saturation VBG O2 Content %vol VBG Base Excess mm/L O2 Delivery Device Sodium (140-148) mmol/L Potassium (3.6-5.2) mmol/L Chloride (100-108) mmol/L Carbon Dioxide (21-32) mmol/L Anion Gap (5.0-14.0) mmol/L BUN (7-18) mg/dL Creatinine (0.6-1.0) mg/dL Est Cr Clr Drug Dosing mL/min Estimated GFR (MDRD) (>60) Glucose (74-106) mg/dL Lactic Acid (0.4-2.0) mmol/L Calcium (8.5-10.1) mg/dL Total Bilirubin (0.2-1.0) mg/dL AST (15-37) U/L ALT (12-78) U/L Alkaline Phosphatase (46-116) U/L Ammonia (11-32) mmol/L C-Reactive Protein (0.0-0.3) mg/dL Total Protein (6.4-8.2) g/dL Albumin (3.4-5.0) g/dL Globulin (2.3-3.5) g/dL Albumin/Globulin Ratio (1.2-2.2) Amylase (25-115) U/L Lipase (73-393) U/L Urine Color Urine Appearance Urine pH (4.5-8.0) Ur Specific [place] (1.008-1.030) Urine Protein (NEGATIVE) mg/dL Urine Glucose (UA) (NEGATIVE) mg/dL Urine Ketones (NEGATIVE) mg/dL Urine Occult Blood (NEGATIVE) Urine Nitrite (NEGATIVE) Urine Bilirubin (NEGATIVE) Urine Urobilinogen (NORMAL) mg/dL Ur Leukocyte Esterase (NEGATIVE) Urine RBC (0-5) Urine WBC (0-5) Ur Epithelial Cells Amorphous Sediment Urine Bacteria Urine Mucus Urine HCG, Qual Urine Opiates Screen Negative (NEGATIVE) Ur Oxycodone Screen Negative (NEGATIVE) Urine Methadone Screen Negative (NEGATIVE) Ur Propoxyphene Screen Negative (NEGATIVE) Ur Barbiturates Screen Negative (NEGATIVE) Ur Tricyclics Screen Negative (NEGATIVE) Ur Phencyclidine Scrn Negative (NEGATIVE) Ur Amphetamine Screen Negative (NEGATIVE) U Methamphetamines Scrn Negative (NEGATIVE) Urine MDMA Screen Negative (NEGATIVE) U Benzodiazepines Scrn Negative (NEGATIVE) U Cocaine Metab Screen Negative (NEGATIVE) U Marijuana (THC) Screen Negative (NEGATIVE) Result Diagrams: 05/04/16 00:32 05/04/16 00:32 *Q Meaningful Use (ADM) - VTE *Q VTE Criteria *Q: - Stroke *Q Stroke Criteria *Q: - AMI *Q AMI Criteria *Q: Problem List Initiated/Reviewed/Updated: Yes Orders Last 24hrs: Active Orders 24 hr Category Date Time Status Patient Status [ADT] Routine ADT 05/04/16 08:52 Ordered EKG Documentation Completion [RC] ASDIRECTED Care 05/04/16 00:34 Active Height and Weight [RC] DAILY Care 05/04/16 08:52 Ordered Intake and Output [RC] QSHIFT Care 05/04/16 08:54 Ordered Oxygen Therapy [RC] PRN Care 05/04/16 08:52 Ordered Up ad Brittani [RC] ASDIRECTED Care 05/04/16 08:52 Ordered Up to Chair [RC] ASDIRECTED Care 05/04/16 08:52 Ordered VTE/DVT Education [RC] Per Unit Routine Care 05/04/16 08:52 Ordered Vital Signs [RC] Q4H Care 05/04/16 08:52 Ordered Abdomen 1V Flat [CR] Routine Exams 05/04/16 08:52 Ordered Abdomen Pelvis w Cont [CT] Stat Exams 05/04/16 01:51 Taken Chest 2V [CR] Routine Exams 05/04/16 08:52 Ordered Iopamidol [Isovue-300 (61%)] Med 05/04/16 02:00 Active 100 ml IV . DIRECTED Nicotine [Habitrol] Med 05/04/16 09:00 Ordered 21 mg TRDERM DAILY Sodium Chloride 0.9% @ 125 MLS/HR (1000ml) Med 05/04/16 09:00 Ordered Sodium Chloride 0.9% [Normal Saline] 1,000 ml IV ASDIRECTED Sodium Chloride 0.9% [Normal Saline] 1,000 ml Med 05/04/16 00:45 Active IV ASDIRECTED Sodium Chloride 0.9% [Normal Saline] 71 ml Med 05/04/16 02:00 Active IV ASDIRECTED Resuscitation Status Routine Resus Stat 05/04/16 08:52 Ordered EKG 12 Lead [EK] Stat Ther 05/04/16 00:33 Ordered Medication Orders Sodium Chloride (Normal Saline) 1,000 mls @ 500 mls/hr IV ASDIRECTED LAURA Last Admin: 05/04/16 01:03 Dose: 500 mls/hr Sodium Chloride (Normal Saline) 71 mls @ 3 mls/sec IV ASDIRECTED LAURA Last Admin: 05/04/16 02:21 Dose: 3 mls/sec Sodium Chloride (Normal Saline) 1,000 mls @ 125 mls/hr IV ASDIRECTED LAURA Iopamidol (Isovue-300 (61%)) 100 ml IV . DIRECTED LAURA Last Admin: 05/04/16 02:21 Dose: 100 ml Nicotine (Habitrol) 21 mg TRDERM DAILY [facility] Assessment/Plan Comment:: Assessment/plan: #1. Abdominal pain. Etiology unknown presently most likely the stomach. Will do a EGD as soon as possible. #2. Cirrhosis of the liver.
--- NOTE | 2016-05-04 09:34 | CR ---
Supine abdomen There is mild stool throughout the colon. There is no large or small bowel distention. The skeletal structures are unremarkable. Impression: 1. No acute findings.
--- NOTE | 2016-05-04 09:35 | CR ---
Chest 2V HISTORY: Abdominal pain FINDINGS: The heart and vascular structures are normal in appearance. No infiltrates or effusions ar e demonstrated. The skeletal structures are unremarkable. IMPRESSION: Negative exam.
[2016-05-04] MEDS ORDERED: Midazolam 1 MG/ML 2 ML SDV ONE (13:33)
[2016-05-04] MEDS ORDERED: Propofol 200 MG/20 ML SDV ONE (13:33)
[2016-05-04] MEDS ORDERED: fentaNYL 100 MCG/2 ML SDV ONE (13:33)
--- NOTE | 2016-05-04 14:14 | PCM.OPNOTE ---
- General Post-Op/Procedure Note Date of Surgery/Procedure: 05/04/16 Findings: Severe gastric and severe duodenal mucosal erythema Pre Op Diagnosis: Abdominal pain Post-Op Diagnosis: Gastric mucosal erythema, duodenal mucosal erythema with pre - ulcerations Primary Surgeon: Carlos A Rivas Sr Condition: Good Free Text/Narrative:: This is a 35-year-old female who began having abdominal pain to the point where she couldn't tolerate the pain. She eventually came into the emergency room and was admitted. She is claiming her pain as a 10/10. A CT of the abdomen was done which showed significant retained food in the stomach even though she hadn't eaten for over 14 hours. She then had a ultrasound and there was pain during the ultrasound procedure at the duodenal bulb. There is a nonobstructing stone in the gallbladder and the gallbladder was retracted. Esophageal gastroduodenoscopy was explained to her and was done in the surgery room.. Anesthesia given nurse community service worker during the procedure use 2 mg of Versed and 100 mg of fentanyl and 150 mg of propofol. The Olympus 180 scope was used. The tube was placed into the pharynx into the esophagus without difficulty and advanced under direct vision. Upon entering the stomach noted significant mucosal erythema. The tube was advanced into the small intestine which revealed significant duodenal erythema and there was a small pre-ulcer noted in the duodenal bulb. Upon retraction of the tube again noticed the severe erythema in the stomach the tube was retroflexed into the fundus which revealed the erythema as well. Biopsy was done in the antrum area and sent for Helicobacter pylori, CLOtest. Air was withdrawn from the stomach there was a small amount of bleeding that we observe this until the bleeding stopped. The GE junction was at 40 cm . The remainder the esophagus was unremarkable. The vocal cords move symmetrically no obvious pathology noted. Pictures were taken of the pathology. Preop: Abdominal pain. Postop: Mucosal erythema severe in nature and stomach as well as the small intestine duodenal bulb. She will be placed on anti-ulcer medication.
[2016-05-04 14:27] VITALS: BP 114/78
[2016-05-04] MEDS ORDERED: Aluminum Hydroxide/Magnesium Hydroxide/Simethicone Susp 30 ML Cup PO SCH ×2 (14:30→21:00)
[2016-05-04] MEDS ORDERED: Pantoprazole 40 MG Tab.CR PO SCH (16:30)
--- NOTE | 2016-05-04 17:45 | PCM.PN ---
- General Info Date of Service: 05/04/16 Functional Status: Reports: pain controlled - Review of Systems General: Reports: no symptoms HEENT: Reports: no symptoms Pulmonary: Reports: no symptoms Cardiovascular: Reports: no symptoms Gastrointestinal: Reports: Abdominal pain Genitourinary: Reports: no symptoms Musculoskeletal: Reports: no symptoms Skin: Reports: no symptoms Neurological: Reports: no symptoms Psychiatric: Reports: no symptoms - Patient Data Vitals - most recent: Last Vital Signs Temp 99.0 F 05/04/16 14:26 Pulse 97 05/04/16 14:26 Resp 18 05/04/16 14:26 BP 114/78 05/04/16 14:26 Pulse Ox 97 05/04/16 14:26 Weight - most recent: 150 lb Med Orders - Current: Current Medications Al Hydroxide/Mg Hydroxide (Mag-Al Plus) 30 ml PO Q8H [facility] Sodium Chloride (Normal Saline) 1,000 mls @ 500 mls/hr IV ASDIRECTED [facility] Last Admin: 05/04/16 01:03 Dose: 500 mls/hr Sodium Chloride (Normal Saline) 71 mls @ 3 mls/sec IV ASDIRECTED [facility] Last Admin: 05/04/16 02:21 Dose: 3 mls/sec Sodium Chloride (Normal Saline) 1,000 mls @ 125 mls/hr IV ASDIRECTED [facility] Last Admin: 05/04/16 11:34 Dose: 125 mls/hr Iopamidol (Isovue-300 (61%)) 100 ml IV . DIRECTED [facility] Last Admin: 05/04/16 02:21 Dose: 100 ml Nicotine (Habitrol) 21 mg TRDERM DAILY [facility] Last Admin: 05/04/16 10:04 Dose: 21 mg Pantoprazole Sodium (Protonix) 40 mg PO BIDAC [facility] Last Admin: 05/04/16 17:27 Dose: 40 mg Discontinued Medications Al Hydroxide/Mg Hydroxide (Mag-Al Plus) 30 ml PO Q8H [facility] Last Admin: 05/04/16 14:45 Dose: 30 ml Diphenhydramine HCl (Benadryl) 25 mg IVPUSH ONETIME ONE Stop: 05/04/16 00:53 Last Admin: 05/04/16 01:03 Dose: 25 mg Fentanyl (Sublimaze) Confirm Administered Dose 100 mcg .ROUTE .STK-MED ONE Stop: 05/04/16 13:34 Lorazepam (Ativan) 0.5 mg IVPUSH ONETIME ONE Stop: 05/04/16 03:00 Last Admin: 05/04/16 03:10 Dose: 0.5 mg Midazolam HCl (Versed 1 Mg/Ml) Confirm Administered Dose 2 mg .ROUTE .STK-MED ONE Stop: 05/04/16 13:34 Propofol (Diprivan 20 Ml) Confirm Administered Dose 200 mg .ROUTE .STK-MED ONE Stop: 05/04/16 13:34 Sodium Chloride (Saline Flush) 10 ml FLUSH ONETIME ONE Stop: 05/04/16 01:57 Last Admin: 05/04/16 02:21 Dose: 10 ml - Exam General: alert, oriented HEENT: Pupils equal, Pupils reactive, EOMI, Mucous membr. moist/pink Neck: supple Lungs: Clear to auscultation, Normal respiratory effort Cardiovascular: regular rate, regular rhythm Abdomen: guarding, tenderness Back Exam: normal inspection, full range of motion Extremities: no edema Neurological: no new focal deficit Psy/Mental Status: alert, normal affect, normal mood - Problem List Review Problem List Initiated/Reviewed/Updated: Yes - My Orders Last 24 Hours: My Active Orders 05/04/16 14:00 TOSHIA TEST [RM] Routine 05/04/16 16:30 Pantoprazole [Protonix] 40 mg PO BIDAC 05/04/16 21:00 Alum Hydrox/Mag Hydrox/Simeth [Mag-Al Plus] 30 ml PO Q8H 05/04/16 Dinner Regular Diet [DIET] - Plan Plan:: Assessment/plan: #1. Abdominal pain. Etiology secondary to gastric and duodenal mucosa erythema which should respond to antacid and Protonix. 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 This will help her stomach she'll. #2. Cirrhosis of the liver. #3. Nicotinic addiction. I will give her nicotinic patch 21 mg for 30 days and she should drop down to 14 and then 7 mg and should not be smoking when she has the patch.
--- NOTE | 2016-05-04 17:49 | PCM.DCSUM1 ---
Discharge Summary - Hospital Course Brief History: She started having abdominal pain yesterday morning with cramping pain worse with a deep breath with stabbing type pain. 10/10 in severity. Hasn't eaten for 15 hrs. She is hungry presently. She has 4 BM/day for more often. Has a history of cirrhosis of the liver. Taking no medicine on a regular basis presently. Whenever she the pain is much worse. - Discharge Data Discharge Date: 05/04/16 Discharge Disposition: Home, Self-Care 01 Condition: Good - Patient Summary/Data Operative Procedure(s) Performed: Esophagogastroduodenoscopy did show significant duodenal mucosal erythema. Biopsies pending for Helicobacter pylori , CLOtest. Hospital Course: Initially the pain was severe she had narcotics when she first came in at the emergency room. We did do an EGD and found the duodenal mucosal erythema and severe. Biopsies are pending for Helicobacter pylori. She'll be discharged home on Protonix 40 mg once a day and also will antiacid when necessary as well as a nicotinic patch. - Discharge Plan Home Medications: Home Meds Gabapentin [Neurontin] 600 mg PO DAILY 05/04/16 [History] Pregabalin [Lyrica] 300 mg PO DAILY 05/04/16 [History] Forms: ED Department Discharge Referrals: PCP,None [Primary Care Provider] - - Discharge Summary/Plan Comment Discharge Summary/Plan Comment: Assessment/plan: #1. Abdominal pain secondary to mucosal erythema in the stomach as well as the duodenum. Biopsy report pending. Active pyloric. #2. Nicotinic addiction. 3. Cirrhosis of the liver by history secondary to alcoholism. - General Info Date of Service: 05/04/16 Functional Status: Reports: pain controlled - Review of Systems General: Reports: other (Abdominal pain) HEENT: Reports: no symptoms Pulmonary: Reports: no symptoms Cardiovascular: Reports: no symptoms Gastrointestinal: Reports: Abdominal pain Genitourinary: Reports: no symptoms Musculoskeletal: Reports: no symptoms Skin: Reports: no symptoms Neurological: Reports: no symptoms Psychiatric: Reports: no symptoms - Patient Data Vitals - Most Recent: Last Vital Signs Temp 99.0 F 05/04/16 14:26 Pulse 97 05/04/16 14:26 Resp 18 05/04/16 14:26 BP 114/78 05/04/16 14:26 Pulse Ox 97 05/04/16 14:26 Weight - Most Recent: 150 lb Med Orders - Current: Current Medications Al Hydroxide/Mg Hydroxide (Mag-Al Plus) 30 ml PO Q8H [facility] Sodium Chloride (Normal Saline) 1,000 mls @ 500 mls/hr IV ASDIRECTED [facility] Last Admin: 05/04/16 01:03 Dose: 500 mls/hr Sodium Chloride (Normal Saline) 71 mls @ 3 mls/sec IV ASDIRECTED [facility] Last Admin: 05/04/16 02:21 Dose: 3 mls/sec Sodium Chloride (Normal Saline) 1,000 mls @ 125 mls/hr IV ASDIRECTED [facility] Last Admin: 05/04/16 11:34 Dose: 125 mls/hr Iopamidol (Isovue-300 (61%)) 100 ml IV . DIRECTED [facility] Last Admin: 05/04/16 02:21 Dose: 100 ml Nicotine (Habitrol) 21 mg TRDERM DAILY [facility] Last Admin: 05/04/16 10:04 Dose: 21 mg Pantoprazole Sodium (Protonix) 40 mg PO BIDAC [facility] Last Admin: 05/04/16 17:27 Dose: 40 mg Discontinued Medications Al Hydroxide/Mg Hydroxide (Mag-Al Plus) 30 ml PO Q8H [facility] Last Admin: 05/04/16 14:45 Dose: 30 ml Diphenhydramine HCl (Benadryl) 25 mg IVPUSH ONETIME ONE Stop: 05/04/16 00:53 Last Admin: 05/04/16 01:03 Dose: 25 mg Fentanyl (Sublimaze) Confirm Administered Dose 100 mcg .ROUTE .STK-MED ONE Stop: 05/04/16 13:34 Lorazepam (Ativan) 0.5 mg IVPUSH ONETIME ONE Stop: 05/04/16 03:00 Last Admin: 05/04/16 03:10 Dose: 0.5 mg Midazolam HCl (Versed 1 Mg/Ml) Confirm Administered Dose 2 mg .ROUTE .STK-MED ONE Stop: 05/04/16 13:34 Propofol (Diprivan 20 Ml) Confirm Administered Dose 200 mg .ROUTE .STK-MED ONE Stop: 05/04/16 13:34 Sodium Chloride (Saline Flush) 10 ml FLUSH ONETIME ONE Stop: 05/04/16 01:57 Last Admin: 05/04/16 02:21 Dose: 10 ml - Exam General: Reports: alert, oriented HEENT: Reports: Pupils equal, Pupils reactive, EOMI, Mucous membr. moist/pink Neck: Reports: supple Lungs: Reports: Clear to auscultation, Normal respiratory effort Cardiovascular: Reports: regular rate, regular rhythm Abdomen: Reports: tenderness Back Exam: Reports: normal inspection, full range of motion Extremities: Reports: no edema, normal pulses Skin: Reports: warm, dry, intact Psy/Mental Status: Reports: alert, normal affect, normal mood *Q Meaningful Use (DIS) - VTE *Q VTE Criteria *Q: - Stroke *Q Stroke Criteria *Q: - AMI *Q AMI Criteria *Q:
== END 2016-05-04 18:20 | DRG 607 ==
LOC: JP.ED 23:30 → JP.ICU 05-04 08:52
PROVIDERS: ADMIT Internal Medicine; ATTEND Internal Medicine
PROC: 0DB68ZX Excision of Stomach, Via Natural or Artificial Opening Endoscopic, Diagnostic (ICD-10-PCS; principal; 2016-05-04)
DX: L53.8 Other specified erythematous conditions (principal); F17.210 Nicotine dependence, cigarettes, uncomplicated; K70.30 Alcoholic cirrhosis of liver without ascites; F10.21 Alcohol dependence, in remission; Z86.19 Personal history of other infectious and parasitic diseases; F20.9 Schizophrenia, unspecified; Z88.8 Allergy status to other drugs, medicaments and biological substances; K31.89 Other diseases of stomach and duodenum
CPT/HCPCS: 36415; 71020; 71020-26; 74000; 74000-26; 74177; 76705; 76705-26; 80053; 80305; 81001; 81025; 82140; 82150; 82803; 83605; 83690; 85025; 85610; 86140; 87081; 93005; 93010; 96374; 96375; 99285; 99285-25; A9270-GY; J1200; J2060; J2250; J2704; J3010; J7030; J7040; J7050; Q9967

== ENCOUNTER 2016-05-05 21:28 | Emergency (ER) | payer SELFPAY ==
--- NOTE | 2016-05-05 23:11 | EDM.PDOC ---
ED HPI GI/ABDOMINAL - General Chief Complaint: Gastrointestinal Problem Stated Complaint: ILLNESS Time Seen by Provider: 05/05/16 21:35 Source: Reports: Patient History Limitations: Reports: No limitations - History of Present Illness INITIAL COMMENTS - FREE TEXT/NARRATIVE: History of present illness: [This 35-year-old female I saw couple of days ago with right flank pain right upper quadrant abdominal pain. She had a CAT scan that demonstrated cholelithiasis and splenomegaly. She comes from [facility] and so Dr. Harris is her primary while she is here. He did scrap her on the phone and gastritis and a pre-ulcer lesion involving the duodenal bulb. She was placed on Protonix but she is presenting now again with the same pain she presented with before. In her discharge notes from her hospitalization there is mention of getting a gallbladder ultrasound but that has not been set up. She's had no fevers chills nausea vomiting just a stabbing right upper quadrant pain. She had her first dose of Protonix today. She also complains of rotator cuff injury to the right shoulder and requests an x-ray. She is only able to abduct to about 80 and has pain. She said the shoulder injected before advised that if she wants an injection perhaps that can be done by Dr. Rivas.] Review of systems: As per history of present illness and below otherwise all systems reviewed and negative. Past medical history: As per history of present illness and as reviewed below otherwise noncontributory. Surgical history: As per history of present illness and as reviewed below otherwise noncontributory. Social history: No reported history of drug or alcohol abuse. Family history: As per history of present illness and as reviewed below otherwise noncontributory. Physical exam: HEENT: Atraumatic, normocephalic, pupils reactive, negative for conjunctival pallor or scleral icterus, mucous membranes moist, throat clear, neck supple, nontender, trachea midline. Lungs: Clear to auscultation, breath sounds equal bilaterally, chest nontender. Heart: S1S2, regular, negative for clicks, rubs, or JVD. Abdomen: She continues to demonstrate tenderness to palpation in the right upper quadrant and right flank area Pelvis: Stable nontender. Genitourinary: Deferred. Rectal: Deferred. Extremities: Atraumatic, negative for cords or calf pain. Neurovascular unremarkable. Neuro: Awake, alert, oriented. Cranial nerves II through XII unremarkable. Cerebellum unremarkable. Motor and sensory unremarkable throughout. Exam nonfocal. Diagnostics: [X-rays of the right shoulder show mild degenerative joint disease. ] Therapeutics: [Once again she is requesting tramadol for me but I declined to provide this to her] Impression: [Right upper quadrant abdominal pain Right shoulder pain possible rotator cuff syndrome] Plan: [I scheduled her for a gallbladder ultrasound in the morning with results to be sent to Dr. Rivas.] Definitive disposition and diagnosis as appropriate pending reevaluation and review of above. - Related Data Allergies/ADRs: Allergies Allergy/AdvReac Type Severity Reaction Status Date / Time Digitalis Glycosides Allergy Cannot Verified 05/04/16 00:26 Remember Home Meds: Home Meds Alum Hydrox/Mag Hydrox/Simeth [Mag-Al Plus] 30 ml PO Q8H cup 05/04/16 [Rx] Nicotine [Habitrol] 21 mg TRDERM DAILY patch 05/04/16 [Rx] Pantoprazole [Protonix] 40 mg PO BIDAC tab.cr 05/04/16 [Rx] Past Medical History Cardiovascular History: Reports: Heart murmur Gastrointestinal History: Reports: Cholelithiasis, Cirrhosis, Gastritis Genitourinary History: Reports: Renal calculus Musculoskeletal History: Reports: Fracture Psychiatric History: Reports: Depression, Schizophrenia Hematologic History: Reports: Blood transfusion(s) Immunologic History: Reports: SLE - Infectious Disease History Infectious Disease History: Reports: Hepatitis C - Past Surgical History Cardiovascular Surgical History: Reports: Other (see below) Other Cardiovascular Surgeries/Procedures: open heart when a child Musculoskeletal Surgical History: Reports: ORIF Social & Family History - Family History Family Medical History: Noncontributory - Tobacco Use Smoking Status *Q: Current Every Day Smoker Years of Tobacco use: 20 Packs/Tins Daily: 105 - Caffeine Use Caffeine Use: Reports: Soda - Recreational Drug Use Recreational Drug Use: No ED ROS GENERAL - Review of Systems Review Of Systems: ROS reveals no pertinent complaints other than HPI. ED EXAM, GI/ABD - Physical Exam Exam: See Below Course - Vital Signs Last Recorded V/S: Last Vital Signs Temp 37.2 C 05/05/16 21:37 Pulse 107 H 05/05/16 21:37 Resp 20 05/05/16 21:37 BP 129/88 05/05/16 21:37 Pulse Ox 95 03/09/17 21:37 - Orders/Labs/Meds Orders: Active Orders 24 hr Category Date Time Status Shoulder Comp Rt [CR] Stat Exams 05/05/16 22:38 Taken Departure - Departure Time of Disposition: 23:10 Disposition: Home, Self-Care 01 Condition: good Clinical Impression: Right upper quadrant abdominal pain, Gastritis and duodenitis, Rotator cuff syndrome of right shoulder Cholelithiasis Qualifiers: Cholelithiasis location: other site Biliary obstruction: without biliary obstruction Qualified Code(s): K80.80 - Other cholelithiasis without obstruction Forms: ED Department Discharge Additional Instructions: You're to be n.p.o. after midnight and to make in the morning for a gallbladder ultrasound and results will be sent to Dr. Rivas and then a determination can be made as to whether or not she would benefit from surgery. - My Orders Last 24 Hours: My Active Orders 05/05/16 22:38 Shoulder Comp Rt [CR] Stat - Assessment/Plan Last 24 Hours: My Active Orders 05/05/16 22:38 Shoulder Comp Rt [CR] Stat
[2016-05-06 00:06] VITALS: BP 128/78
--- NOTE | 2016-05-06 09:59 | CR ---
Right shoulder There is normal alignment of the glenohumeral as well as AC joints. Mild hypertrophic changes are pr esent at the AC joint. The soft tissues are unremarkable. There is a remnant of [employer] shunt tubing over lying the right chest wall. Impression: 1. Mild degenerative findings of the AC joint. Cough
== END 2016-05-06 00:05 | disposition home or self-care (01) ==
LOC: JP.ED 21:28
DX: K80.80 Other cholelithiasis without obstruction (principal); K29.70 Gastritis, unspecified, without bleeding; K29.80 Duodenitis without bleeding; M75.101 Unspecified rotator cuff tear or rupture of right shoulder, not specified as traumatic; R01.1 Cardiac murmur, unspecified; F32.9 Major depressive disorder, single episode, unspecified; F17.210 Nicotine dependence, cigarettes, uncomplicated; Z88.8 Allergy status to other drugs, medicaments and biological substances
CPT/HCPCS: 73030-26-RT; 73030-RT; 99284; 99285